=== PATIENT | female | born 1955 | race Caucasian/White ===

== ENCOUNTER → 2019-11-30 | Outpatient (CLI) | payer MEDICARE ==
[~2019-11-30] MED LIST: GADODIAMIDE 10 MMOL/20 ML VIAL IV ONE
== END | disposition home or self-care (01) ==
LOC: RAH 12:06
PROVIDERS: ATTEND Neurological Surgery
DX: M48.061 Spinal stenosis, lumbar region without neurogenic claudication (principal); M47.816 Spondylosis without myelopathy or radiculopathy, lumbar region; D25.9 Leiomyoma of uterus, unspecified; J34.89 Other specified disorders of nose and nasal sinuses; R83.9 Unspecified abnormal finding in cerebrospinal fluid
CPT/HCPCS: 70553; 72158; A9579

== ENCOUNTER → 2020-08-09 | Outpatient (CLI) | payer MEDICARE | END | disposition home or self-care (01) | LOC: RAH 10:59 | DX: N88.8 Other specified noninflammatory disorders of cervix uteri (principal); D25.9 Leiomyoma of uterus, unspecified; M51.37 Other intervertebral disc degeneration, lumbosacral region; G96.191 Perineural cyst; M16.0 Bilateral primary osteoarthritis of hip; M41.86 Other forms of scoliosis, lumbar region | CPT/HCPCS: 72195; 73521 ==